=== PATIENT | male | born 2000 | race American Indian/Alaskan Native ===

== ENCOUNTER 2019-01-25 08:22 | Emergency (ER) | payer OTHER ==
[2019-01-25 08:45] VITALS: BP 117/42
--- NOTE | 2019-01-25 09:33 | XRay Report ---
PROCEDURE: XR KNEE 3V RT TECHNIQUE: 4 views of the right knee HISTORY: right knee injury and swelling COMPARISONS: None. FINDINGS: There is normal alignment without acute fracture or dislocation. There is no joint effusion. The over lying soft tissues are normal. There is no radiopaque foreign body. IMPRESSION: No acute bony abnormality of the right knee. This document is electronically signed by Rosmery Noel MD., Jan 25 2019 09:31:11 AM ET
--- NOTE | 2019-01-25 11:09 | Emergency Department Report ---
ED General Adult HPI - General Chief complaint: Neck Pain/Injury Stated complaint: TWISTED RT KNEE Time Seen by Provider: 01/25/19 10:49 Source: patient Mode of arrival: Ambulatory Limitations: Physical Limitation - History of Present Illness Initial comments: Patient is a 18-year-old male presents ED complaining of right knee pain status post injury yesterday. Patient states he was playful all when he accidentally stepped wrong on his foot and didn't see heard a pop of the knee. Patient states he started expressing throbbing sensation to the anterior aspect of the knee yesterday and today. Patient states that he has pain with lifting the knee. He denies any swelling, difficulty walking, loss of sensation at the knee. - Related Data Previous Rx's Medication Instructions Recorded Last Taken Type Cyclobenzaprine [Flexeril] 10 mg PO QHS #10 tablet 01/25/19 Unknown Rx Ibuprofen [Motrin] 600 mg PO Q8H PRN #30 tablet 01/25/19 Unknown Rx Allergies Allergy/AdvReac Type Severity Reaction Status Date / Time No Known Allergies Allergy Unverified 01/25/19 08:27 ED Review of Systems ROS: Stated complaint: TWISTED RT KNEE Other details as noted in HPI Comment: All other systems reviewed and negative ED Past Medical Hx - Social History Smoking Status: Current Every Day Smoker Substance Use Type: Marijuana - Medications Home Medications: Home Medications Medication Instructions Recorded Confirmed Last Taken Type Cyclobenzaprine [Flexeril] 10 mg PO QHS #10 tablet 01/25/19 Unknown Rx Ibuprofen [Motrin] 600 mg PO Q8H PRN #30 tablet 01/25/19 Unknown Rx ED Physical Exam - General Limitations: Physical Limitation General appearance: alert, in no apparent distress - Head Head exam: Present: atraumatic, normocephalic - Eye Eye exam: Present: normal appearance - ENT ENT exam: Present: mucous membranes moist - Neck Neck exam: Present: normal inspection - Respiratory Respiratory exam: Present: normal lung sounds bilaterally. Absent: respiratory distress - Cardiovascular Cardiovascular Exam: Present: regular rate, normal rhythm. Absent: systolic murmur, diastolic murmur, rubs, gallop - GI/Abdominal GI/Abdominal exam: Present: soft, normal bowel sounds - Rectal Rectal exam: Present: deferred - Extremities Exam Extremities exam: Present: normal inspection - Expanded Lower Extremity Exam Right Hip exam: Present: normal inspection, full ROM, abrasion Upper Leg exam: Present: full ROM Knee exam: Present: normal inspection, full ROM, tenderness (mild tenderness to palpation of the anterior aspect of the). Absent: swelling, abrasion, laceration, deformity, dislocation, pain/laxity with valgus, pain/laxity with varus Lower Leg exam: Present: normal inspection, full ROM Ankle exam: Present: normal inspection, full ROM Foot/Toe exam: Present: normal inspection, full ROM Neuro vascular tendon exam: Absent: no vascular compromise - Back Exam Back exam: Present: normal inspection - Neurological Exam Neurological exam: Present: alert, oriented X3 - Psychiatric Psychiatric exam: Present: normal affect, normal mood - Skin Skin exam: Present: warm, dry, intact, normal color. Absent: rash ED Course Vital Signs 01/25/19 08:42 Temperature 98.4 F Pulse Rate 80 Respiratory 18 Rate Blood Pressure 117/42 O2 Sat by Pulse 100 Oximetry ED Medical Decision Making - Radiology Data Radiology results: report reviewed, image reviewed PROCEDURE: XR KNEE 3V RT TECHNIQUE: 4 views of the right knee HISTORY: right knee injury and swelling COMPARISONS: None. FINDINGS: There is normal alignment without acute fracture or dislocation. There is no joint effusion. The overlying soft tissues are normal. There is no radiopaque foreign body. IMPRESSION: No acute bony abnormality of the right knee. This document is electronically signed by Rosmery Noel MD., Jan 25 2019 09:31:11 AM ET Transcribed By: JACOB Dictated By: ROSMERY NOEL MD Electronically Authenticated By: ROSMERY NOEL MD Signed Date/Time: 01/25/19 0933 - Medical Decision Making 18-year-old male presents to ED with knee pain status post injury ED course: X-rays were ordered and obtained in ED. Vital signs are normal patient is in no acute distress Discussed with patient follow-up with primary care physician. Discussed the patient and take medications as prescribed. Patient has no neurological deficit. Patient is alert and oriented 3 and understands all instructions given. Discussed drowsiness effect of Flexeril makes her drowsy and not to operate machinery while taking flexeril Critical care attestation.: If time is entered above; I have spent that time in minutes in the direct care of this critically ill patient, excluding procedure time. ED Disposition Clinical Impression: Right anterior knee pain Disposition: DC-01 TO HOME OR SELFCARE Is pt being admited?: No Does the pt Need Aspirin: No Condition: Stable Instructions: Arthralgia (ED) Additional Instructions: DischargeMake sure to follow up with the primary care physician as discussed. Take all your medications as you've been prescribed. If you have any worsening symptoms or develop new symptoms please return to ED immediately. Prescriptions: Cyclobenzaprine [Flexeril] 10 mg PO QHS #10 tablet Ibuprofen [Motrin] 600 mg PO Q8H PRN #30 tablet PRN Reason: Pain Referrals: KATHIE DEE MD [Primary Care Provider] - 3-5 Days Forms: Accompanied Note Time of Disposition: 11:11
[2019-01-25] MEDS ORDERED: IBUPROFEN PO ONE (11:15)
== END 2019-01-25 11:47 | disposition home or self-care (01) ==
LOC: ED 08:22
DX: M25.561 Pain in right knee (principal); F17.200 Nicotine dependence, unspecified, uncomplicated; F12.10 Cannabis abuse, uncomplicated
CPT/HCPCS: 99283